=== PATIENT | male | born 1960 | race Caucasian/White ===

== ENCOUNTER 2018-04-17 12:47 | Outpatient (CLI) | payer OTHER | END 2018-04-17 23:59 | disposition home or self-care (01) | LOC: VAS 12:47 | PROVIDERS: ATTEND Family Medicine | DX: I73.89 Other specified peripheral vascular diseases (principal); F17.200 Nicotine dependence, unspecified, uncomplicated | CPT/HCPCS: 93922 ==

== ENCOUNTER 2020-01-18 08:19 | Day surgery (SDC) | payer OTHER ==
[~2020-01-18] VITALS: Ht 172.7 cm; Wt 68.5 kg
[2020-01-18] MEDS ORDERED: albumin 25% 100mL bottle x 1 IV PRN (08:40)
[2020-01-18] MEDS ORDERED: LEVO200T8 PO (09:25)
[2020-01-18] MEDS ORDERED: HYDR500C18 PO (09:25)
[2020-01-18] MEDS ORDERED: IPRA3AMP9 IH (09:25)
[2020-01-18] MEDS ORDERED: AMLO5TAB69 PO (09:25)
[2020-01-18] MEDS ORDERED: VENE100T PO (09:25)
[2020-01-18] MEDS ORDERED: FURO20TA4 PO (09:25)
[2020-01-18] MEDS ORDERED: ALLO300T8 PO (09:25)
[2020-01-18] MEDS ORDERED: SILD100T PO (09:25)
[2020-01-18 09:27] VITALS: BP 123/80
[2020-01-18 09:42] VITALS: BP 132/80
[2020-01-18 10:00] VITALS: BP 123/80
[2020-01-18 10:20] VITALS: BP 141/96
[2020-01-18 10:35] VITALS: BP 134/75
[2020-01-18 11:01] LABS: GLUCOSE,BODY FLUID 81 MG/DL; LDH,BODY FLUID 214 U/L
[2020-01-18 11:04] LABS: BASOPHILS,BODY FLUID 1 %; LYMPHOCYTES,BODY FLUID 97 %; MONOCYTES,BODY FLUID 1 %; NEUTROPHILS,BODY FLUID 1 %
[2020-01-18 11:05] LABS: BF RBC COUNT 4600 /CU MM; BF WBC COUNT 5300 /CU MM (0-1000); BFAPPEAR CLOUDY; BFCOLOR YELLOW; BFVOLUME 50 ML
== END 2020-01-18 10:45 | disposition home or self-care (01) ==
LOC: SSTAY O 08:19
PROVIDERS: ATTEND Radiology Diagnostic Radiology
DX: J90 Pleural effusion, not elsewhere classified (principal); M10.9 Gout, unspecified; I10 Essential (primary) hypertension; J44.9 Chronic obstructive pulmonary disease, unspecified; E03.9 Hypothyroidism, unspecified; Z85.850 Personal history of malignant neoplasm of thyroid; Z98.890 Other specified postprocedural states; Z87.891 Personal history of nicotine dependence; Z79.899 Other long term (current) drug therapy
CPT/HCPCS: 32555; 71045; 82945; 83615; 84157; 87070; 89051

== ENCOUNTER 2020-01-28 08:43 | Day surgery (SDC) | payer OTHER ==
[~2020-01-28] VITALS: Ht 172.7 cm; Wt 66.1 kg
[2020-01-28] VITALS (8 sets, daily range): BP systolic 97–113; BP diastolic 60–71
[~2020-01-28 08:43] MED LIST: ALLO300T8 PO; AMLO5TAB69 PO; FURO20TA4 PO; HYDR500C18 PO; IPRA3AMP9 IH; LEVO200T8 PO; SILD100T PO; VENE100T PO
== END 2020-01-28 12:10 | disposition home or self-care (01) ==
LOC: SSTAY O 08:43
PROVIDERS: ATTEND Radiology Vascular & Interventional Radiology
DX: J90 Pleural effusion, not elsewhere classified (principal); M10.9 Gout, unspecified; I10 Essential (primary) hypertension; J44.9 Chronic obstructive pulmonary disease, unspecified; E03.9 Hypothyroidism, unspecified; C91.10 Chronic lymphocytic leukemia of B-cell type not having achieved remission; E85.9 Amyloidosis, unspecified; Z98.890 Other specified postprocedural states; Z79.899 Other long term (current) drug therapy
CPT/HCPCS: 32555; 71045

== ENCOUNTER 2020-02-21 08:46 | Day surgery (SDC) | payer OTHER ==
[~2020-02-21] VITALS: Ht 172.7 cm; Wt 65.8 kg
[2020-02-21] MEDS ORDERED: DOCU100C68 PO (09:13)
[2020-02-21] MEDS ORDERED: ASPI-611 PO (09:13)
[2020-02-21] MEDS ORDERED: PSYL0.524 PO (09:13)
[2020-02-21] MEDS ORDERED: MELA5TAB21 PO (09:13)
[2020-02-21] MEDS ORDERED: MULT-1249 PO (09:13)
[2020-02-21 09:15] VITALS: BP 106/73
[2020-02-21 09:45] VITALS: BP 108/72
[2020-02-21 10:00] VITALS: BP 124/77
[2020-02-21 10:15] VITALS: BP 106/68
[2020-02-21 10:30] VITALS: BP 115/70
--- NOTE | 2020-02-21 10:40 | NUR ---
CXR taken, read by HOMER Merrill. Provider stated no pneumothorax, pt ok to discharge pending stable vital signs.
== END 2020-02-21 10:40 | disposition home or self-care (01) ==
LOC: SSTAY O 08:46
PROVIDERS: ATTEND Radiology Vascular & Interventional Radiology
DX: J90 Pleural effusion, not elsewhere classified (principal); J44.9 Chronic obstructive pulmonary disease, unspecified; I10 Essential (primary) hypertension; M10.9 Gout, unspecified; E03.9 Hypothyroidism, unspecified; Z85.850 Personal history of malignant neoplasm of thyroid; Z85.6 Personal history of leukemia; Z98.890 Other specified postprocedural states; Z87.891 Personal history of nicotine dependence; Z79.82 Long term (current) use of aspirin; Z79.899 Other long term (current) drug therapy
CPT/HCPCS: 32555; 71045